=== PATIENT | male | born 1980 | race Caucasian/White ===

== ENCOUNTER 2017-10-01 09:52 | Emergency (ER) | payer OTHER ==
[~2017-10-01] VITALS: Ht 182.9 cm; Wt 77.3 kg
[2017-10-01 09:55] VITALS: BP 134/83; TEMP 99
[2017-10-01] MEDS ORDERED: NAPROSYN500 MG PO (10:53)
[2017-10-01] MEDS ORDERED: NORCO 325 MG-51 TAB PO (10:53)
[2017-10-01 11:03] VITALS: PULSE 89
== END 2017-10-01 11:03 | disposition home or self-care (01) ==
LOC: COL.ER 09:52
DX: M25.551 Pain in right hip (principal); Z98.890 Other specified postprocedural states; Z88.6 Allergy status to analgesic agent; Z88.8 Allergy status to other drugs, medicaments and biological substances; X50.0XXA Overexertion from strenuous movement or load, initial encounter
CPT/HCPCS: J1885